=== PATIENT | female | born 1985 | race Two or more races ===

== ENCOUNTER → 2024-02-19 | Outpatient (CLI) | payer MEDICAID, SELFPAY ==
--- NOTE | 2024-02-19 07:00 | XR_ITS ---
Examination: MRI lumbar spine without contrast Date and time of exam: February 19, 2024 0714 hours INDICATIONS: Low back pain beginning 12 years ago with increasing pain Technique: Multiple MRI axial and sagittal sections lumbar spine. Sagittal T2-weighted images, TR 3500, TE 118 T1 weighted transverse sections, TR 688 T8.5, T2-weighted sagittal sections T1 weighted sagittal sections TR 621, TE 30 T2 axial sections, TR 4, 190, TE 84. Findings: Grade 2 spondylolisthesis L4 on L5 with advanced disc narrowing at this level including disc desiccation Adequate marrow signal lumbar vertebral bodies L5-S1 no disc protrusion L4-L5 2 mm central lumbar disc bulge extending to the foraminal regions with mild bilateral L4 ganglionic compression, largely secondary to the spondylolisthesis L3-L4 no disc protrusion L2-L3 no disc protrusion L1-L2 no disc protrusion IMPRESSION: Grade 2 spondylolisthesis L4 on L5 with advanced disc narrowing at this level Spinal stenosis L4-L5 largely secondary to the spondylolisthesis including mild bilateral L4 ganglionic compression
== END | disposition home or self-care (01) ==
PROVIDERS: PCP Nurse Practitioner Family; Referring Provider Nurse Practitioner Family; Visit Provider Nurse Practitioner Family
DX: M43.16 Spondylolisthesis, lumbar region (principal); M48.061 Spinal stenosis, lumbar region without neurogenic claudication; G95.20 Unspecified cord compression
CPT/HCPCS: 72148